=== PATIENT | male | born 1960 | race Caucasian/White ===

== ENCOUNTER 2017-02-08 21:48 | Emergency (ER) | payer OTHER ==
[~2017-02-08 21:48] MED LIST: ADVIL100 MG; ALBU90OI INH; AZIT250 PO; AZIT500 PO; BENZ100A PO; BISA5EC; CIPR500; CIPR500 PO; CYCL10 PO; DICY20 PO; DOCU100 PO; DOXY100 PO; Desyrel50 MG PO; Diflucan100 MG PO; FLUC150A PO; FLUT44OIA INH; HYDACE10B PO; HYDACE5 PO; HYDACE7.5L PO; HYDR1TAB94 PO; IBUP400 PO; IBUP600; IBUP600 PO; IBUP800; IBUP800 PO; LEVO750 PO; LEVSOD100 PO; LORA1 PO; METR500 PO; NAPR500 PO; NYSTRI30T TOP; Norco 5-325 Ta1 EACH PO; OMEP40CA12 PO; ONDA4 PO; ONDA8 PO; OXYACE5T PO; PENVK500 PO; PRAZ1 PO; PRED10 PO; PRED20 PO; PROACE100; PROACE100 PO; PROM25 PO; Phenergan25 M1 PO; Prednisone20 MG PO; QUET100 PO; Synthroid50 MCG; TAMS.4ER PO; TOBDEXOPSU OP; Vistaril50 MG PO
[2018-01-12] MEDS ORDERED: CIME400 PO (09:44)
[2018-01-12] MEDS ORDERED: TAMS.4ER PO (09:45)
[2018-01-12] MEDS ORDERED: DOC250 PO (09:45)
== END 2017-02-08 22:02 | disposition left against medical advice (07) ==
LOC: ER 21:48
DX: Z53.21 Procedure and treatment not carried out due to patient leaving prior to being seen by health care provider (principal)

== ENCOUNTER 2017-12-16 10:05 | Emergency (ER) | payer OTHER ==
[~2017-12-16] VITALS: Ht 182.9 cm; Wt 86.2 kg
[2017-12-16] MEDS ORDERED: LEVSOD100 PO (10:33)
[2017-12-16] MEDS ORDERED: Flovent 220 Ora12 GM (10:33)
[2017-12-16] MEDS ORDERED: OMEPRAZOLE MAGN20 MG PO (10:34)
[2017-12-16] MEDS ORDERED: PRAZ2 PO (10:34)
[2017-12-16] MEDS ORDERED: LORA1 PO (10:34)
[2017-12-16] MEDS ORDERED: BISA5EC (10:35)
[2017-12-16 10:48] LABS: Source, Urine Clean Catch
[2017-12-16 10:53] LABS: BASOPHILS ABSOLUTE AUTO 0.05 K/mm3 (0.00-0.23); BASOPHILS PERCENT AUTO 1 % (0-2); EOSINOPHILS ABSOLUTE AUTO 0.16 K/mm3 (0.00-0.68); EOSINOPHILS PERCENT AUTO 3 % (0-6); Hematocrit 45.8 % (37.0-53.0); Hemoglobin 15.4 g/dL (13.5-17.5); IMMATURE GRAN ABSOLUTE AUTO 0.01 K/mm3 (0.00-0.10); IMMATURE GRAN PERCENT AUTO 0 % (0-1); LYMPHOCYTES ABSOLUTE AUTO 1.49 K/mm3 (0.84-5.20); LYMPHOCYTES PERCENT AUTO 24 % (21-46); MONOCYTES ABSOLUTE AUTO 0.39 K/mm3 (0.16-1.47); MONOCYTES PERCENT AUTO 6 % (4-13); Mean Corpuscular HGB 28.9 pg (26.0-34.0); Mean Corpuscular HGB Conc 33.6 g/dL (31.5-36.5); Mean Corpuscular Volume 86 fL (80-100); NEUTROPHILS ABSOLUTE AUTO 4.02 K/mm3 (1.96-9.15); NEUTROPHILS PERCENT AUTO 66 % (41-73); Platelet Count 213 K/mm3 (150-400); RDW Coefficient Variation 12.5 % (11.7-14.2); Red Blood Cell Count 5.32 M/mm3 (4.30-5.90); White Blood Cell Count 6.12 K/mm3 (4.00-11.30)
[2017-12-16 10:56] LABS: Bilirubin, Urine Neg (Neg); Blood, Urine 5+ (Neg); Glucose Qualitative, Urine Neg (Neg); Ketones, Urine Neg (Neg); Leukocyte Esterase, Urine Neg (Neg); Nitrite, Urine Neg (Neg); Protein, Urine 2+ (Neg); Urobilinogen, Urine NORM (Normal)
[2017-12-16 11:04] LABS: Appearance, Urine Hazy (Clear); Color, Urine Red (P-Yellow)
[2017-12-16 11:05] LABS: Alanine Aminotransfer (ALT/SGP 17 U/L (12-78); Albumin, Blood 4.1 g/dL (3.4-5.0); Albumin/Globulin Ratio 1.2 (0.8-1.8); Alk Phos 104 U/L (50-136); Anion Gap 8 mmol/L (6-16); Aspartate Aminotrans (AST/SGOT 20 U/L (12-37); Bacteria Not Seen /hpf; Bilirubin, Total 0.4 mg/dL (0.1-1.0); Blood Urea Nitrogen 12 mg/dL (8-24); Bun/Creatinine Ratio 12.7 (12.0-20.0); CO2, Blood 27 mmol/L (21-32); Calcium, Blood 8.6 mg/dL (8.5-10.1); Chloride, Blood 105 mmol/L (98-108); Creatinine, Blood 0.94 mg/dL (0.60-1.20); Globulin, Blood 3.3 g/dL (2.2-4.0); Glomerular Filtration Rate >60 (60-); Glucose, Blood 89 mg/dL (70-99); Potassium, Blood 3.8 mmol/L (3.5-5.5); Red Blood Cells, Urine TNTC /hpf (0-2); Sodium, Blood 140 mmol/L (136-145); Squamous Epithelial Cells Not Seen /hpf (Few); Total Protein, Blood 7.4 g/dL (6.4-8.2); White Blood Cells, Urine Not Seen /hpf (0-5)
[2017-12-16] MEDS ORDERED: Norco 5-325 Ta1 EACH PO (11:53)
[2017-12-16] MEDS ORDERED: Zofran Odt4 MG SL (11:53)
[2017-12-16] MEDS ORDERED: Flomax0.4 MG PO (11:53)
== END 2017-12-16 12:28 | disposition home or self-care (01) ==
LOC: ER 10:05
PROVIDERS: Emergency Medicine
DX: N20.0 Calculus of kidney (principal); Z88.5 Allergy status to narcotic agent; Z88.8 Allergy status to other drugs, medicaments and biological substances; Z79.899 Other long term (current) drug therapy; Z79.51 Long term (current) use of inhaled steroids; Z87.891 Personal history of nicotine dependence
CPT/HCPCS: 36415; 74176; 80053; 81001; 83690; 85025; 93005; 93010; 96361; 96374; 96375; 99284-25; J1885; J2405; J7030

== ENCOUNTER 2018-03-24 10:06 | Emergency (ER) | payer OTHER ==
[~2018-03-24] VITALS: Ht 182.9 cm; Wt 86.2 kg
[~2018-03-24 10:06] MED LIST changes: +CIME400 PO; +DOC250 PO; +Flomax0.4 MG PO; +Flovent 220 Ora12 GM; +OMEPRAZOLE MAGN20 MG PO; +PRAZ2 PO; +Zofran Odt4 MG SL
[2018-03-24 10:57] LABS: BASOPHILS ABSOLUTE AUTO 0.03 K/mm3 (0.00-0.23); BASOPHILS PERCENT AUTO 0 % (0-2); EOSINOPHILS ABSOLUTE AUTO 0.12 K/mm3 (0.00-0.68); EOSINOPHILS PERCENT AUTO 1 % (0-6); Hematocrit 53.3 % (37.0-53.0); Hemoglobin 17.2 g/dL (13.5-17.5); IMMATURE GRAN ABSOLUTE AUTO 0.02 K/mm3 (0.00-0.10); IMMATURE GRAN PERCENT AUTO 0 % (0-1); LYMPHOCYTES ABSOLUTE AUTO 0.31 K/mm3 (0.84-5.20); LYMPHOCYTES PERCENT AUTO 3 % (21-46); MONOCYTES PERCENT AUTO 3 % (4-13); Mean Corpuscular HGB 29.5 pg (26.0-34.0); Mean Corpuscular HGB Conc 32.3 g/dL (31.5-36.5); Mean Corpuscular Volume 91 fL (80-100); Mean Platelet Volume 10.2 fL (9.1-12.4); NEUTROPHILS PERCENT AUTO 93 % (41-73); Platelet Count 226 K/mm3 (150-400); RDW Coefficient Variation 13.3 % (11.7-14.2); RDW Standard Deviation 44.5 fL (35.1-46.3); Red Blood Cell Count 5.84 M/mm3 (4.30-5.90); White Blood Cell Count 12.28 K/mm3 (4.00-11.30)
[2018-03-24 11:16] LABS: Alanine Aminotransfer (ALT/SGP 18 U/L (12-78); Albumin, Blood 3.8 g/dL (3.4-5.0); Alk Phos 99 U/L (50-136); Anion Gap 7 mmol/L (6-16); Aspartate Aminotrans (AST/SGOT 26 U/L (12-37); Bilirubin, Total 0.6 mg/dL (0.1-1.0); Blood Urea Nitrogen 19 mg/dL (8-24); Bun/Creatinine Ratio 18.4 (12.0-20.0); CO2, Blood 21 mmol/L (21-32); Calcium, Blood 8.5 mg/dL (8.5-10.1); Chloride, Blood 111 mmol/L (98-108); Creatinine, Blood 1.03 mg/dL (0.60-1.20); Globulin, Blood 3.8 g/dL (2.2-4.0); Glomerular Filtration Rate >60 (60-); Glucose, Blood 97 mg/dL (70-99); Potassium, Blood 4.4 mmol/L (3.5-5.5); Sodium, Blood 139 mmol/L (136-145); Total Protein, Blood 7.6 g/dL (6.4-8.2)
== END 2018-03-24 12:20 | disposition left against medical advice (07) ==
LOC: ER 10:06
PROVIDERS: Emergency Medicine
DX: Z53.21 Procedure and treatment not carried out due to patient leaving prior to being seen by health care provider (principal)
CPT/HCPCS: 36415; 80053; 83690; 85025

== ENCOUNTER → 2018-03-26 | Outpatient (CLI) | payer OTHER ==
[2018-03-26 11:18] LABS: BASOPHILS ABSOLUTE AUTO 0.02 K/mm3 (0.00-0.23); BASOPHILS PERCENT AUTO 0 % (0-2); EOSINOPHILS ABSOLUTE AUTO 0.19 K/mm3 (0.00-0.68); EOSINOPHILS PERCENT AUTO 4 % (0-6); Hematocrit 45.9 % (37.0-53.0); Hemoglobin 15.8 g/dL (13.5-17.5); IMMATURE GRAN ABSOLUTE AUTO 0.01 K/mm3 (0.00-0.10); IMMATURE GRAN PERCENT AUTO 0 % (0-1); LYMPHOCYTES ABSOLUTE AUTO 1.38 K/mm3 (0.84-5.20); LYMPHOCYTES PERCENT AUTO 28 % (21-46); MONOCYTES ABSOLUTE AUTO 0.47 K/mm3 (0.16-1.47); MONOCYTES PERCENT AUTO 10 % (4-13); Mean Corpuscular HGB 29.4 pg (26.0-34.0); Mean Corpuscular HGB Conc 34.4 g/dL (31.5-36.5); NEUTROPHILS ABSOLUTE AUTO 2.89 K/mm3 (1.96-9.15); NEUTROPHILS PERCENT AUTO 58 % (41-73); Platelet Count 189 K/mm3 (150-400); RDW Standard Deviation 40.4 fL (35.1-46.3); Red Blood Cell Count 5.38 M/mm3 (4.30-5.90); White Blood Cell Count 4.96 K/mm3 (4.00-11.30)
[2018-03-26 11:21] LABS: Mean Corpuscular Volume 85 fL (80-100)
[2018-03-26 11:31] LABS: Alanine Aminotransfer (ALT/SGP 15 U/L (12-78); Albumin, Blood 3.6 g/dL (3.4-5.0); Alk Phos 98 U/L (40-126); Anion Gap 12 mmol/L (6-16); Aspartate Aminotrans (AST/SGOT 15 U/L (12-37); Bilirubin, Total 0.4 mg/dL (0.1-1.0); Blood Urea Nitrogen 13 mg/dL (8-24); Bun/Creatinine Ratio 12.7 (12.0-20.0); CO2, Blood 25 mmol/L (21-32); Calcium, Blood 7.7 mg/dL (8.5-10.1); Chloride, Blood 102 mmol/L (98-108); Creatinine, Blood 1.02 mg/dL (0.60-1.20); Globulin, Blood 3.5 g/dL (2.2-4.0); Glomerular Filtration Rate >60 (60-); Glucose, Blood 104 mg/dL (70-99); Potassium, Blood 3.4 mmol/L (3.5-5.5); Sodium, Blood 139 mmol/L (136-145); Total Protein, Blood 7.1 g/dL (6.4-8.2)
== END ==
LOC: LAB SHORT 11:15 → LAB EV 11:15
PROVIDERS: Emergency Medicine
DX: R42 Dizziness and giddiness (principal)
CPT/HCPCS: 80053; 85025

== ENCOUNTER → 2018-07-08 | Outpatient (CLI) | payer OTHER | END | disposition home or self-care (01) | LOC: LAB SHORT 07:00 → LAB 07:00 → LAB FUT 04-30 12:15 → EDSTATUS 04-30 12:15 | DX: N20.0 Calculus of kidney (principal) | CPT/HCPCS: 81050 ==

== ENCOUNTER → 2018-10-21 | Outpatient (CLI) | payer OTHER | END | disposition home or self-care (01) | LOC: LAB EV 06:00 | DX: R19.7 Diarrhea, unspecified (principal) | CPT/HCPCS: 87015; 87045; 87046; 87177; 87205; 87209; 87493; 87899 ==

== ENCOUNTER → 2018-11-14 | Outpatient (CLI) | payer OTHER | END | disposition home or self-care (01) | LOC: LAB EV 10:34 → LAB SHORT 10:34 | DX: R30.9 Painful micturition, unspecified (principal) | CPT/HCPCS: 87086 ==

== ENCOUNTER → 2020-06-29 | Outpatient (CLI) | payer OTHER ==
[2020-06-29 18:44] LABS: BASOPHILS ABSOLUTE AUTO 0.06 K/mm3 (0.00-0.23); BASOPHILS PERCENT AUTO 1 % (0-2); EOSINOPHILS ABSOLUTE AUTO 0.33 K/mm3 (0.00-0.68); EOSINOPHILS PERCENT AUTO 4 % (0-6); Hematocrit 44.9 % (37.0-53.0); Hemoglobin 14.9 g/dL (13.5-17.5); IMMATURE GRAN ABSOLUTE AUTO 0.01 K/mm3 (0.00-0.10); IMMATURE GRAN PERCENT AUTO 0 % (0-1); LYMPHOCYTES ABSOLUTE AUTO 2.18 K/mm3 (0.84-5.20); LYMPHOCYTES PERCENT AUTO 28 % (21-46); MONOCYTES ABSOLUTE AUTO 0.46 K/mm3 (0.16-1.47); MONOCYTES PERCENT AUTO 6 % (4-13); Mean Corpuscular HGB 28.9 pg (26.0-34.0); Mean Corpuscular HGB Conc 33.2 g/dL (31.5-36.5); Mean Corpuscular Volume 87 fL (80-100); Mean Platelet Volume 10.6 fL (9.1-12.4); NEUTROPHILS ABSOLUTE AUTO 4.76 K/mm3 (1.96-9.15); NEUTROPHILS PERCENT AUTO 61 % (41-73); Platelet Count 225 K/mm3 (150-400); RDW Coefficient Variation 12.7 % (11.7-14.2); RDW Standard Deviation 41.1 fL (35.1-46.3); Red Blood Cell Count 5.15 M/mm3 (4.30-5.90)
[2020-06-29 19:04] LABS: Alanine Aminotransfer (ALT/SGP 22 U/L (12-78); Albumin, Blood 4.1 g/dL (3.4-5.0); Albumin/Globulin Ratio 1.2 (0.8-1.8); Alk Phos 114 U/L (50-136); Anion Gap 2 mmol/L (6-16); Aspartate Aminotrans (AST/SGOT 13 U/L (12-37); Bilirubin, Total 0.3 mg/dL (0.1-1.0); Blood Urea Nitrogen 14 mg/dL (8-24); Bun/Creatinine Ratio 13.2 (12.0-20.0); CO2, Blood 30 mmol/L (21-32); Calcium, Blood 8.6 mg/dL (8.5-10.1); Chloride, Blood 108 mmol/L (98-108); Creatinine, Blood 1.06 mg/dL (0.60-1.20); Globulin, Blood 3.4 g/dL (2.2-4.0); Glomerular Filtration Rate >60 (60-); Glucose, Blood 107 mg/dL (70-99); Potassium, Blood 3.9 mmol/L (3.5-5.5); Sodium, Blood 140 mmol/L (136-145); Total Protein, Blood 7.5 g/dL (6.4-8.2)
== END | disposition home or self-care (01) ==
LOC: LAB 17:30 → LAB SHORT 17:30
PROVIDERS: Nurse Practitioner Family
DX: R07.81 Pleurodynia (principal)
CPT/HCPCS: 80053; 85025

== ENCOUNTER → 2020-12-16 | Outpatient (CLI) | payer OTHER ==
[2020-12-16 15:07] LABS: BASOPHILS ABSOLUTE AUTO 0.06 K/mm3 (0.00-0.23); BASOPHILS PERCENT AUTO 1 % (0-2); EOSINOPHILS ABSOLUTE AUTO 0.23 K/mm3 (0.00-0.68); EOSINOPHILS PERCENT AUTO 4 % (0-6); Hematocrit 45.5 % (37.0-53.0); Hemoglobin 15.2 g/dL (13.5-17.5); IMMATURE GRAN ABSOLUTE AUTO 0.02 K/mm3 (0.00-0.10); IMMATURE GRAN PERCENT AUTO 0 % (0-1); LYMPHOCYTES ABSOLUTE AUTO 1.66 K/mm3 (0.84-5.20); LYMPHOCYTES PERCENT AUTO 30 % (21-46); MONOCYTES ABSOLUTE AUTO 0.41 K/mm3 (0.16-1.47); MONOCYTES PERCENT AUTO 7 % (4-13); Mean Corpuscular HGB Conc 33.4 g/dL (31.5-36.5); Mean Corpuscular Volume 87 fL (80-100); Mean Platelet Volume 11.5 fL (9.1-12.4); NEUTROPHILS ABSOLUTE AUTO 3.22 K/mm3 (1.96-9.15); NEUTROPHILS PERCENT AUTO 58 % (41-73); Platelet Count 176 K/mm3 (150-400); RDW Standard Deviation 41.3 fL (35.1-46.3); Red Blood Cell Count 5.24 M/mm3 (4.30-5.90)
[2020-12-16 15:26] LABS: U Amphetamine Screen Not Detected; U Barbituate Screen Not Detected; U Benzodiazapine Screen DETECTED; U Buprenorphine Screen Not Detected; U Cannabinoids Screen DETECTED; U Cocaine Screen Not Detected; U Methadone Screen Not Detected; U Methamphetamine Screen Not Detected; U Opiates Screen Not Detected; U Oxycodone Screen Not Detected; U Phencyclidine Screen Not Detected; U Propoxyphene Screen Not Detected
[2020-12-16 17:38] LABS: Very Low Density Lipoprot Chol 11 mg/dL (6-32)
[2020-12-16 17:47] LABS: Alanine Aminotransfer (ALT/SGP 20 U/L (12-78); Albumin, Blood 4.1 g/dL (3.4-5.0); Albumin/Globulin Ratio 1.2 (0.8-1.8); Alk Phos 93 U/L (50-136); Anion Gap 6 mmol/L (6-16); Aspartate Aminotrans (AST/SGOT 16 U/L (12-37); Bilirubin, Direct <0.1 mg/dL (0.0-0.3); Bilirubin, Indirect Unable to Calculate mg/dL (0.1-0.7); Bilirubin, Total 0.3 mg/dL (0.1-1.0); Blood Urea Nitrogen 15 mg/dL (8-24); Bun/Creatinine Ratio 14.2 (12.0-20.0); CHOL/HDL RATIO 2.9; CO2, Blood 28 mmol/L (21-32); Calcium, Blood 9.4 mg/dL (8.5-10.1); Chloride, Blood 105 mmol/L (98-108); Cholesterol 156 mg/dL (50-200); Creatinine, Blood 1.06 mg/dL (0.60-1.20); Globulin, Blood 3.4 g/dL (2.2-4.0); Glomerular Filtration Rate >60 (60-); Glucose, Blood 88 mg/dL (70-99); HDL Cholesterol 54 mg/dL (>39); LDL/HDL RATIO 1.7; Low Density Lipoprotein Chol 91 mg/dL (0-110); Potassium, Blood 3.7 mmol/L (3.5-5.5); Prostate Specific Antigen 0.483 ng/mL (0.000-4.000); Sodium, Blood 139 mmol/L (136-145); Total Protein, Blood 7.5 g/dL (6.4-8.2); Triglycerides 56 mg/dL (30-160)
== END | disposition home or self-care (01) ==
LOC: LAB SHORT 13:04
PROVIDERS: Nurse Practitioner Family
DX: N40.0 Benign prostatic hyperplasia without lower urinary tract symptoms (principal); I10 Essential (primary) hypertension; E78.5 Hyperlipidemia, unspecified; K76.0 Fatty (change of) liver, not elsewhere classified; Z79.899 Other long term (current) drug therapy
CPT/HCPCS: 80053; 80061; 82248; 84153; 85025

== ENCOUNTER 2023-04-01 16:24 | Emergency (ER) | payer OTHER ==
[~2023-04-01] VITALS: Ht 182.9 cm; Wt 77.1 kg
[~2023-04-01 16:24] MED LIST changes: +ACET500 PO; +ALBU2.5V5 INH; +Calcium Carbon500 MG PO; -Flovent 220 Ora12 GM; +Flovent 220 Ora12 GM INH
[2023-04-01] MEDS ORDERED: PRAZ5 PO (16:40)
[2023-04-01] MEDS ORDERED: OMEP20ER PO (16:41)
[2023-04-01 17:09] LABS: BASOPHILS ABSOLUTE AUTO 0.06 K/mm3 (0.00-0.23); BASOPHILS PERCENT AUTO 1 % (0-2); EOSINOPHILS ABSOLUTE AUTO 0.09 K/mm3 (0.00-0.68); EOSINOPHILS PERCENT AUTO 1 % (0-6); Hematocrit 42.1 % (37.0-53.0); Hemoglobin 14.3 g/dL (13.5-17.5); IMMATURE GRAN ABSOLUTE AUTO 0.03 K/mm3 (0.00-0.10); IMMATURE GRAN PERCENT AUTO 0 % (0-1); LYMPHOCYTES ABSOLUTE AUTO 2.23 K/mm3 (0.84-5.20); LYMPHOCYTES PERCENT AUTO 25 % (21-46); MONOCYTES ABSOLUTE AUTO 0.49 K/mm3 (0.16-1.47); MONOCYTES PERCENT AUTO 6 % (4-13); Mean Corpuscular HGB 30.1 pg (26.0-34.0); Mean Corpuscular Volume 89 fL (80-100); Mean Platelet Volume 9.6 fL (9.1-12.4); NEUTROPHILS ABSOLUTE AUTO 6.04 K/mm3 (1.96-9.15); NEUTROPHILS PERCENT AUTO 68 % (41-73); Platelet Count 162 K/mm3 (150-400); RDW Coefficient Variation 12.9 % (11.7-14.2); RDW Standard Deviation 42.2 fL (35.1-46.3); Red Blood Cell Count 4.75 M/mm3 (4.30-5.90); White Blood Cell Count 8.94 K/mm3 (4.00-11.30)
[2023-04-01 17:34] LABS: Albumin, Blood 3.8 g/dL (3.4-5.0); Albumin/Globulin Ratio 1.3 (0.8-1.8); Bilirubin, Total 0.3 mg/dL (0.1-1.0); Bun/Creatinine Ratio 15.3 (12.0-20.0); Creatinine, Blood 1.11 mg/dL (0.60-1.20); Globulin, Blood 2.9 g/dL (2.2-4.0); Potassium, Blood 3.6 mmol/L (3.5-5.5); Total Protein, Blood 6.7 g/dL (6.4-8.2)
[2023-04-01] MEDS ORDERED: HYDCOR2.5C PR (18:23)
[2023-04-01 18:30] VITALS: BP 116/82
== END 2023-04-01 18:45 | disposition home or self-care (01) ==
LOC: ER 16:24
PROVIDERS: Emergency Medicine
DX: K64.8 Other hemorrhoids (principal); K64.4 Residual hemorrhoidal skin tags; Z87.891 Personal history of nicotine dependence; Z79.51 Long term (current) use of inhaled steroids; Z79.899 Other long term (current) drug therapy; Z88.5 Allergy status to narcotic agent
CPT/HCPCS: 46999; 80053; 85025; 99283-25

== ENCOUNTER 2023-08-23 19:35 | Emergency (ER) | payer OTHER ==
[~2023-08-23] VITALS: Ht 177.8 cm; Wt 83.9 kg
[~2023-08-23 19:35] MED LIST changes: +ADULT GLYCERIN1 EACH PR; -ALBU2.5V5 INH; +ALBU2.5V5 NEB; +EUTHYROX125 MCG PO; +FAMO40 PO; +HYDCOR2.5C PR; +IBUP200 PO; +OMEP20ER PO; +PRAZ5 PO; +PSEU120ER PO; +SENN187; +SYMBICORT 160-4.6 GM INH
[2023-08-23 20:44] LABS: Source, Urine Clean Catch
[2023-08-23 20:48] LABS: BASOPHILS ABSOLUTE AUTO 0.05 K/mm3 (0.00-0.23); BASOPHILS PERCENT AUTO 1 % (0-2); EOSINOPHILS ABSOLUTE AUTO 0.18 K/mm3 (0.00-0.68); EOSINOPHILS PERCENT AUTO 2 % (0-6); Hematocrit 42.2 % (37.0-53.0); Hemoglobin 14.4 g/dL (13.5-17.5); IMMATURE GRAN ABSOLUTE AUTO 0.02 K/mm3 (0.00-0.10); IMMATURE GRAN PERCENT AUTO 0 % (0-1); LYMPHOCYTES ABSOLUTE AUTO 2.44 K/mm3 (0.84-5.20); LYMPHOCYTES PERCENT AUTO 29 % (21-46); MONOCYTES ABSOLUTE AUTO 0.57 K/mm3 (0.16-1.47); MONOCYTES PERCENT AUTO 7 % (4-13); Mean Corpuscular HGB 29.8 pg (26.0-34.0); Mean Corpuscular HGB Conc 34.1 g/dL (31.5-36.5); Mean Corpuscular Volume 87 fL (80-100); Mean Platelet Volume 9.6 fL (9.1-12.4); NEUTROPHILS ABSOLUTE AUTO 5.17 K/mm3 (1.96-9.15); NEUTROPHILS PERCENT AUTO 61 % (41-73); Platelet Count 185 K/mm3 (150-400); RDW Coefficient Variation 12.2 % (11.7-14.2); RDW Standard Deviation 39.3 fL (35.1-46.3); Red Blood Cell Count 4.83 M/mm3 (4.30-5.90); White Blood Cell Count 8.43 K/mm3 (4.00-11.30)
[2023-08-23 20:49] LABS: Appearance, Urine Clear (Clear); Bilirubin, Urine Neg (Neg); Blood, Urine 2+ (Neg); Color, Urine Yellow (P-Yellow); Glucose Qualitative, Urine Neg (Neg); Ketones, Urine Neg (Neg); Leukocyte Esterase, Urine Neg (Neg); Nitrite, Urine Neg (Neg); Protein, Urine 1+ (Neg); Specific Gravity, Urine 1.025 (1.003-1.022); Urobilinogen, Urine NORM (Normal)
[2023-08-23 20:58] LABS: Bacteria Rare /hpf; Squamous Epithelial Cells Rare /hpf (Few); White Blood Cells, Urine 0-2 /hpf (0-5)
[2023-08-23 21:07] LABS: Albumin, Blood 3.9 g/dL (3.4-5.0); Albumin/Globulin Ratio 1.3 (0.8-1.8); Bilirubin, Total 0.3 mg/dL (0.1-1.0); Calcium, Blood 8.8 mg/dL (8.5-10.1); Creatinine, Blood 1.12 mg/dL (0.60-1.20); Potassium, Blood 3.9 mmol/L (3.5-5.5); Total Protein, Blood 6.9 g/dL (6.4-8.2)
[2023-08-23 23:24] VITALS: BP 124/83
== END 2023-08-23 23:45 | disposition home or self-care (01) ==
LOC: ER 19:35
PROVIDERS: Student in an Organized Health Care Education/Training Program
DX: N23 Unspecified renal colic (principal); K21.9 Gastro-esophageal reflux disease without esophagitis; Z88.5 Allergy status to narcotic agent; Z88.8 Allergy status to other drugs, medicaments and biological substances; Z79.899 Other long term (current) drug therapy; Z87.891 Personal history of nicotine dependence
CPT/HCPCS: 74177; 80053; 81001; 83690; 85025; 99284-25; Q9967

== ENCOUNTER → 2023-08-30 | Outpatient (CLI) | payer OTHER | END | disposition home or self-care (01) | LOC: LAB SHORT 18:30 → LAB 18:30 | DX: R10.13 Epigastric pain (principal) | CPT/HCPCS: 87338 ==

== ENCOUNTER 2023-11-07 02:35 | Emergency (ER) | payer OTHER ==
[~2023-11-07] VITALS: Ht 182.9 cm; Wt 77.1 kg
[2023-11-07 02:56] LABS: BASOPHILS ABSOLUTE AUTO 0.04 K/mm3 (0.00-0.23); BASOPHILS PERCENT AUTO 1 % (0-2); EOSINOPHILS ABSOLUTE AUTO 0.25 K/mm3 (0.00-0.68); EOSINOPHILS PERCENT AUTO 5 % (0-6); Hematocrit 41.3 % (37.0-53.0); Hemoglobin 14.2 g/dL (13.5-17.5); IMMATURE GRAN ABSOLUTE AUTO 0.02 K/mm3 (0.00-0.10); IMMATURE GRAN PERCENT AUTO 0 % (0-1); LYMPHOCYTES ABSOLUTE AUTO 2.39 K/mm3 (0.84-5.20); LYMPHOCYTES PERCENT AUTO 47 % (21-46); MONOCYTES ABSOLUTE AUTO 0.32 K/mm3 (0.16-1.47); MONOCYTES PERCENT AUTO 6 % (4-13); Mean Corpuscular HGB 29.7 pg (26.0-34.0); Mean Corpuscular HGB Conc 34.4 g/dL (31.5-36.5); Mean Corpuscular Volume 86 fL (80-100); Mean Platelet Volume 9.6 fL (9.1-12.4); NEUTROPHILS ABSOLUTE AUTO 2.04 K/mm3 (1.96-9.15); NEUTROPHILS PERCENT AUTO 40 % (41-73); Platelet Count 195 K/mm3 (150-400); RDW Coefficient Variation 13.4 % (11.7-14.2); RDW Standard Deviation 42.3 fL (35.1-46.3); Red Blood Cell Count 4.78 M/mm3 (4.30-5.90); White Blood Cell Count 5.06 K/mm3 (4.00-11.30)
[2023-11-07 03:18] LABS: Albumin, Blood 3.7 g/dL (3.4-5.0); Albumin/Globulin Ratio 1.3 (0.8-1.8); Bilirubin, Total 0.3 mg/dL (0.1-1.0); Bun/Creatinine Ratio 11.8 (12.0-20.0); Calcium, Blood 8.9 mg/dL (8.5-10.1); Creatinine, Blood 1.1 mg/dL (0.60-1.20); Globulin, Blood 2.9 g/dL (2.2-4.0); Potassium, Blood 3.6 mmol/L (3.5-5.5); Total Protein, Blood 6.6 g/dL (6.4-8.2)
[2023-11-07] MEDS ORDERED: PRED20 PO (05:01)
[2023-11-07] MEDS ORDERED: AZIT250 PO (05:24)
[2023-11-07 05:30] VITALS: BP 104/67
== END 2023-11-07 05:41 | disposition home or self-care (01) ==
LOC: ER 02:35
PROVIDERS: Emergency Medicine
DX: J98.4 Other disorders of lung (principal); K21.9 Gastro-esophageal reflux disease without esophagitis; Z88.5 Allergy status to narcotic agent; Z91.041 Radiographic dye allergy status; Z88.8 Allergy status to other drugs, medicaments and biological substances; Z79.890 Hormone replacement therapy; Z79.899 Other long term (current) drug therapy; Z87.11 Personal history of peptic ulcer disease; Z87.891 Personal history of nicotine dependence
CPT/HCPCS: 71045; 80053; 84484; 85025; 93005; 93010; 99285-25

== ENCOUNTER 2024-05-23 09:31 | Inpatient (IN) | payer OTHER ==
[~2024-05-23] VITALS: Ht 182.9 cm; Wt 72.6 kg
[~2024-05-23 09:31] MED LIST changes: -SENN187; +SENN187 PO
[2024-05-23] MEDS ORDERED: Morphine Sulfate 4 MG/1 ML Injection IV ONE (09:55)
[2024-05-23 10:29] LABS: BASOPHILS ABSOLUTE AUTO 0.04 K/mm3 (0.00-0.23); BASOPHILS PERCENT AUTO 1 % (0-2); EOSINOPHILS PERCENT AUTO 3 % (0-6); Hematocrit 43.7 % (37.0-53.0); Hemoglobin 13.9 g/dL (13.5-17.5); IMMATURE GRAN ABSOLUTE AUTO 0.02 K/mm3 (0.00-0.10); IMMATURE GRAN PERCENT AUTO 0 % (0-1); LYMPHOCYTES ABSOLUTE AUTO 2.45 K/mm3 (0.84-5.20); LYMPHOCYTES PERCENT AUTO 38 % (21-46); MONOCYTES ABSOLUTE AUTO 0.45 K/mm3 (0.16-1.47); MONOCYTES PERCENT AUTO 7 % (4-13); Mean Corpuscular HGB 28.3 pg (26.0-34.0); Mean Corpuscular HGB Conc 31.8 g/dL (31.5-36.5); Mean Corpuscular Volume 89 fL (80-100); Mean Platelet Volume 9.8 fL (9.1-12.4); NEUTROPHILS ABSOLUTE AUTO 3.33 K/mm3 (1.96-9.15); NEUTROPHILS PERCENT AUTO 51 % (41-73); Platelet Count 193 K/mm3 (150-400); RDW Coefficient Variation 13.2 % (11.7-14.2); Red Blood Cell Count 4.92 M/mm3 (4.30-5.90); White Blood Cell Count 6.49 K/mm3 (4.00-11.30)
[2024-05-23] MEDS ORDERED: DOCU100 PO (10:42)
[2024-05-23] MEDS ORDERED: [UNRECOGNIZED DRUG - CODE] PO (10:42)
[2024-05-23 10:43] LABS: Bun/Creatinine Ratio 13.5 (12.0-20.0); Calcium, Blood 8.8 mg/dL (8.5-10.1); Creatinine, Blood 0.96 mg/dL (0.60-1.20); Potassium, Blood 3.7 mmol/L (3.5-5.5)
[2024-05-23] MEDS ORDERED: VITAMIN D350 MC3 PO (10:43)
[2024-05-23] MEDS ORDERED: Ketorolac Tromethamine 30mg Vial IV ONE (11:10)
[2024-05-23] MEDS ORDERED: Acetaminophen 325 MG TABLET PO PRN (12:50)
[2024-05-23] MEDS ORDERED: Morphine Sulfate 4 MG/1 ML Injection IV PRN (12:50)
[2024-05-23] MEDS ORDERED: Polyethylene Glycol 3350 17 gm PO PRN (12:50)
[2024-05-23 14:24] VITALS: BP 128/82
[2024-05-23] MEDS ORDERED: OxyCODONE HCL 5 MG TAB PO PRN (16:15)
[2024-05-23] MEDS ORDERED: Albuterol 2.5 MG/3 ML VIAL INH PRN (16:35)
[2024-05-23] MEDS ORDERED: LORazepam 1 MG Tab PO PRN (16:35)
[2024-05-23] MEDS ORDERED: Albuterol HFA200 ACT/6.7 GM INH INH PRN (16:45)
--- NOTE | 2024-05-23 17:06 | NUR ---
END OF SHIFT PT RESTING. HIP FRACTURE SCHEDULED TO BE REPAIRED TOMORROW AM. RATES PAIM 05/18. DENIES COMPLAINTS
[2024-05-23] MEDS ORDERED: Calcium Carbonate 500 MG Tab Chew PO PRN (18:20)
[2024-05-23 19:22] VITALS: BP 127/79
[2024-05-23] MEDS ORDERED: Docusate Sodium 100 MG Cap PO SCH (21:00)
[2024-05-23] MEDS ORDERED: QUEtiapine Fumarate 200 MG Tab PO SCH (21:00)
[2024-05-23] MEDS ORDERED: Polyethylene Glycol 3350 17 gm PO SCH (21:00)
[2024-05-23] MEDS ORDERED: Sennosides 8.6 MG Tab PO SCH (21:00)
[2024-05-23] MEDS ORDERED: Omeprazole 20 MG CapCR PO SCH (21:00)
[2024-05-23] MEDS ORDERED: Prazosin HCl 1 MG Cap PO SCH (21:00)
--- NOTE | 2024-05-23 23:52 | NUR ---
REPORT TAKEN FROM GRAZYNA SOSA TO ASSUME CARE OF PT AT THIS TIME. PT HOB ELEVATED, HE IS AWAKE. NO NEEDS AT THIS TIME.
--- NOTE | 2024-05-23 23:59 | NUR ---
REPORT GIVEN TO MONSTER ROBLEDO RN TO ASSUME CARE OF PT.
[2024-05-24] VITALS (23 sets, daily range): BP systolic 90–136; BP diastolic 60–104
[2024-05-24 04:49] LABS: BASOPHILS ABSOLUTE AUTO 0.05 K/mm3 (0.00-0.23); BASOPHILS PERCENT AUTO 1 % (0-2); EOSINOPHILS ABSOLUTE AUTO 0.31 K/mm3 (0.00-0.68); EOSINOPHILS PERCENT AUTO 4 % (0-6); Hematocrit 38.5 % (37.0-53.0); Hemoglobin 12.8 g/dL (13.5-17.5); IMMATURE GRAN ABSOLUTE AUTO 0.03 K/mm3 (0.00-0.10); IMMATURE GRAN PERCENT AUTO 0 % (0-1); LYMPHOCYTES ABSOLUTE AUTO 1.93 K/mm3 (0.84-5.20); LYMPHOCYTES PERCENT AUTO 28 % (21-46); MONOCYTES ABSOLUTE AUTO 0.66 K/mm3 (0.16-1.47); MONOCYTES PERCENT AUTO 9 % (4-13); Mean Corpuscular HGB 28.1 pg (26.0-34.0); Mean Corpuscular HGB Conc 33.2 g/dL (31.5-36.5); Mean Corpuscular Volume 85 fL (80-100); Mean Platelet Volume 9.6 fL (9.1-12.4); NEUTROPHILS ABSOLUTE AUTO 4.01 K/mm3 (1.96-9.15); NEUTROPHILS PERCENT AUTO 58 % (41-73); Platelet Count 173 K/mm3 (150-400); RDW Coefficient Variation 13.2 % (11.7-14.2); RDW Standard Deviation 40.7 fL (35.1-46.3); Red Blood Cell Count 4.55 M/mm3 (4.30-5.90); White Blood Cell Count 6.99 K/mm3 (4.00-11.30)
[2024-05-24] MEDS ORDERED: Tranexamic Acid 100 ML IV SCH (05:00)
[2024-05-24] MEDS ORDERED: Vancomycin HCL 1,000 MG in NS 250 ML IV SCH (05:00)
[2024-05-24] MEDS ORDERED: CeFAZolin Sodium 2,000 MG in NS 100 ML IV SCH (05:00)
--- NOTE | 2024-05-24 05:06 | NUR ---
SHIFT SUMMARY THIS RN ASSUMED CARE OF PT THIS SHIFT JUST SHORTLY BEFORE MIDNIGHT. LEFT HIP FRACTURE. PLAN IS SURGERY TODAY, PT HAS BEEN NPO SINCE MIDNIGHT. PAIN MANAGED WITH MEDS EMAR. PRE OP WASH COMPLETED BY PREVIOUS RN GRAZYNA. PLAN OF CARE UNCHANGED, BED IN LOWEST POSITION, CALL LIGHT WITHIN REACH.
[2024-05-24 05:21] LABS: Bun/Creatinine Ratio 15.4 (12.0-20.0); Calcium, Blood 8.6 mg/dL (8.5-10.1); Creatinine, Blood 0.91 mg/dL (0.60-1.20); Potassium, Blood 3.6 mmol/L (3.5-5.5)
[2024-05-24] MEDS ORDERED: Levothyroxine Sodium 0.125 MG Tab PO SCH (06:00)
[2024-05-24] MEDS ORDERED: Mometasone/Formoterol MDI 200/5 mcg 13 GM INH SCH (08:15)
[2024-05-24] MEDS ORDERED: Cholecalciferol 1000 Unit Tablet (=25MCG) PO SCH (09:00)
[2024-05-24] MEDS ORDERED: Tamsulosin HCl 0.4 MG Cap PO SCH (09:00)
[2024-05-24] MEDS ORDERED: GABA100 PO (09:29)
[2024-05-24] MEDS ORDERED: ENULOSE10 GM/156 PO (09:37)
[2024-05-24] MEDS ORDERED: ALLERCLEAR10 MG PO (09:38)
[2024-05-24] MEDS ORDERED: Methocarbamol500 MG PO (09:42)
[2024-05-24] MEDS ORDERED: KLAYESTA15 GM TOP (09:45)
[2024-05-24] MEDS ORDERED: Triamcinolone A15 G4 TOP (09:50)
[2024-05-24] MEDS ORDERED: QUETIAPINE FUM200 M3 PO (09:53)
[2024-05-24] MEDS ORDERED: SYMBICORT 160-4.6 GM PO (10:06)
[2024-05-24] MEDS ORDERED: ALEVAZOL56.7 G1 TOP (10:06)
[2024-05-24] MEDS ORDERED: Glycerin Adult Supp 1 EA PR STA (10:58)
[2024-05-24] MEDS ORDERED: Dextran/Hypromellose/Glycerin 15 DROP/ML BTL BOTHEYES PRN (11:10)
[2024-05-24] MEDS ORDERED: Midazolam HCl 1MG / ML 2ML Vial ONE (12:20)
[2024-05-24] MEDS ORDERED: FentaNYL Citrate 50 MCG/ML 2 ML Injection ONE (12:20)
--- NOTE | 2024-05-24 13:03 | NUR ---
PT TO OR.
[2024-05-24] MEDS ORDERED: Lactated Ringer's 1,000 ML IV SCH (13:15)
--- NOTE | 2024-05-24 14:00 | NUR ---
History, Chart, Medications and Allergies reviewed before start of procedure. Patient confirms NPO status and agrees with scheduled surgery. Pre-Op teaching done. Pt verbalizes understanding. Pt's glasses placed in labeled bag and placed in PACU. Spouse at bedside. Surgical site prepped with 2% Chlorhexidine cloth wipe. Lungs clear T/O to Auscultation, shallow respirations.
[2024-05-24] MEDS ORDERED: Rocuronium Bromide 10 MG/ML 5ML Injection IV ONE (14:02)
[2024-05-24] MEDS ORDERED: propofoL 20 ML IV ONE (14:02)
[2024-05-24] MEDS ORDERED: Ondansetron HCl 2 MG / ML 2ML Vial ONE (14:02)
[2024-05-24] MEDS ORDERED: Magnesium Hydroxide Conc 10 ML UDC PO PRN (14:10)
[2024-05-24] MEDS ORDERED: Morphine Sulfate 4 MG/1 ML Injection IV PRN (14:10)
[2024-05-24] MEDS ORDERED: HYDROcodone 5-APAP 325 TAB PO PRN (14:10)
[2024-05-24] MEDS ORDERED: HYDROmorphone HCl/Pf 1MG SYR ONE ×3 (14:14→16:10)
[2024-05-24] MEDS ORDERED: Bisacodyl 10 MG Supp PR PRN (14:15)
[2024-05-24] MEDS ORDERED: Ondansetron 4 MG TAB PO PRN (14:15)
[2024-05-24] MEDS ORDERED: Acetaminophen 325 MG TABLET PO PRN (14:15)
[2024-05-24] MEDS ORDERED: Ondansetron HCl 2 MG / ML 2ML Vial IV PRN ×2 (14:15→15:10)
[2024-05-24] MEDS ORDERED: NS KCl 20mEq 1,000 ML IV SCH (14:15)
[2024-05-24] MEDS ORDERED: Naloxone HCl 0.4MG / ML 1ML Vial IV PRN (14:20)
[2024-05-24] MEDS ORDERED: Phenylephrine HCl 100 MCG/ML-NS 10MLSYR (1MG/10ML) ONE (14:30)
[2024-05-24] MEDS ORDERED: Ketorolac Tromethamine 15mg Vial IV PRN (14:40)
[2024-05-24] MEDS ORDERED: HYDROmorphone HCl/Pf 1MG SYR IV PRN ×2 (15:10)
[2024-05-24] MEDS ORDERED: Atropine Sulfate 0.1 MG/ML 10ML SYR IV PRN (15:10)
[2024-05-24] MEDS ORDERED: Albuterol 2.5 MG/3 ML VIAL INH PRN (15:10)
[2024-05-24] MEDS ORDERED: ePHEDrine Sulfate 50 MG/ML 1ML Injection IV PRN (15:10)
[2024-05-24] MEDS ORDERED: Sugammadex Sodium 200 MG/2ML SDV (100 MG/ML) ONE (15:21)
[2024-05-24] MEDS ORDERED: Ipratropium/Albuterol SulF 2.5-0.5MG/3 ML Amp ONE (16:39)
--- NOTE | 2024-05-24 17:20 | NUR ---
pt arrived back to room from pacu. REPORTS PAIN TOLERABLE AT THIS TIME. DENIES NAUSEA. VSS. CALL LIGHT IN REACH. SOFT WHITE DRESSING W/TEGADERM X2 TO L HIP CDI. ICE PACK IN PLACE FOR COMFORT. ICE WATER AND SNACK PROVIDED. SPOUSE AMBULATING TO PATIENT'S ROOM AT THIS TIME.
[2024-05-24] MEDS ORDERED: Docusate Sodium 100 MG Cap PO SCH (21:00)
[2024-05-24] MEDS ORDERED: Simethicone 80 MG Chew PO PRN (21:00)
[2024-05-25 01:37] VITALS: BP 98/66
[2024-05-25 02:41] VITALS: BP 91/57
[2024-05-25 05:47] LABS: BASOPHILS ABSOLUTE AUTO 0.03 K/mm3 (0.00-0.23); BASOPHILS PERCENT AUTO 0 % (0-2); EOSINOPHILS ABSOLUTE AUTO 0.29 K/mm3 (0.00-0.68); EOSINOPHILS PERCENT AUTO 4 % (0-6); Hematocrit 35.8 % (37.0-53.0); Hemoglobin 11.9 g/dL (13.5-17.5); IMMATURE GRAN ABSOLUTE AUTO 0.02 K/mm3 (0.00-0.10); IMMATURE GRAN PERCENT AUTO 0 % (0-1); LYMPHOCYTES ABSOLUTE AUTO 1.73 K/mm3 (0.84-5.20); LYMPHOCYTES PERCENT AUTO 23 % (21-46); MONOCYTES ABSOLUTE AUTO 0.66 K/mm3 (0.16-1.47); MONOCYTES PERCENT AUTO 9 % (4-13); Mean Corpuscular HGB 28.7 pg (26.0-34.0); Mean Corpuscular HGB Conc 33.2 g/dL (31.5-36.5); Mean Corpuscular Volume 86 fL (80-100); Mean Platelet Volume 10.2 fL (9.1-12.4); NEUTROPHILS ABSOLUTE AUTO 4.73 K/mm3 (1.96-9.15); NEUTROPHILS PERCENT AUTO 63 % (41-73); Platelet Count 153 K/mm3 (150-400); RDW Coefficient Variation 13.2 % (11.7-14.2); RDW Standard Deviation 41.7 fL (35.1-46.3); Red Blood Cell Count 4.15 M/mm3 (4.30-5.90); White Blood Cell Count 7.46 K/mm3 (4.00-11.30)
[2024-05-25 06:10] LABS: Bun/Creatinine Ratio 15.7 (12.0-20.0); Creatinine, Blood 0.89 mg/dL (0.60-1.20); Potassium, Blood 3.9 mmol/L (3.5-5.5)
--- NOTE | 2024-05-25 06:58 | NUR ---
NOC SUMMARY- PT PAIN MANAGED WELL. PT IS CONCERNED WITH HAVING A BM. ALL ORDERED BOWEL CARE WAS GIVEN. PT IS VOIDING VIA URINAL. PT DRESSING INTACT AND CLEAN. CALL LIGHT INREACH.
[2024-05-25 07:21] VITALS: BP 102/66
[2024-05-25] MEDS ORDERED: Enoxaparin 40 MG/0.4 ML SYR SC SCH (09:00)
[2024-05-25] MEDS ORDERED: Glycerin Adult Supp 1 EA PR PRN (09:00)
[2024-05-25] MEDS ORDERED: Lactulose 20 GM/30 ML UDC PO SCH (12:00)
[2024-05-25 14:44] VITALS: BP 115/78
--- NOTE | 2024-05-25 16:43 | NUR ---
SHIFT SUMMARY NO ACUTE EVENTS, VSS, PATIENT WORKED WITH THERAPY SITS IN THE CHAIR, HAD BM TODAY, VOIDING, PASSING GAS. DENIES N/V. DRESSING CHANGED THIS AM WITH SURGEON KERMIT IS C/D/I. ICE TO HIP AND PATIENT TOLERATES WELL. [facility]
[2024-05-25 21:38] VITALS: BP 95/59
[2024-05-26 05:22] VITALS: BP 109/71
--- NOTE | 2024-05-26 06:43 | NUR ---
Shift Summary Day shift and Pt had reported numerous loose bowel movements 05/25 so I held all night time bowel meds. No acute events, pt was medicated for pain and anxiety and then slept well t/o most of the night. He is AOx4, 2 person assist [place] [facility] [place]
[2024-05-26 07:07] VITALS: BP 111/68
--- NOTE | 2024-05-26 08:23 | NUR ---
Spiritual Care Consult: ordered by Avinash Barajas At the request of the Pts. family this investor relations analyst came to Pts. bedside. Pt. is awake and pleasant. Faciltated a life review and listened with interest and empathy. Considered matters of shelley and belief, and a measure of rapport is established. Pt. displays evidence of awareness and engagement. Prayed with the pt. Pt. verbalized gratitude for the spiritual care visit and requested this investor relations analyst's contact information. Business Card is provided to the Pt.
[2024-05-26 14:27] VITALS: BP 118/78
--- NOTE | 2024-05-26 15:44 | NUR ---
SUMMARY: PT IS POD2 L HIP PINNING. A/O, VSS. SURGICAL SITE WNL. PT NEEDING 10MG OXY ABOUT EVERY 4 HRS. PAINFUL WITH MOVEMENT. PT AMBULATING TO CHAIR WITH 2 ASSIST AND FWW, FOLLOWS TTWB AND WORKED WITH THERAPY. PT REFUSED BOWEL CARE TODAY, SAYING HE HAD LOOSE STOOLS ALL DAY YESTERDAY. DID TAKE MIRALAX TONIGHT AND HAD X1 SMALL BM. PLAN IS FOR REHAB, SEE CARE MANAGEMENT NOTES. PT USES CALL LIGHT AND MAKES NEEDS KNOWN
--- NOTE | 2024-05-26 17:28 | NUR ---
SUMMARY: PT HAS DONE WELL POST OP. VSS, MINIMAL PAIN. PT IS VOIDING, USING CALL LIGHT. NO ACUTE CONCERNS.
[2024-05-26 19:23] VITALS: BP 120/78
[2024-05-27 04:57] VITALS: BP 111/75
[2024-05-27 05:25] LABS: BASOPHILS ABSOLUTE AUTO 0.02 K/mm3 (0.00-0.23); BASOPHILS PERCENT AUTO 0 % (0-2); EOSINOPHILS ABSOLUTE AUTO 0.26 K/mm3 (0.00-0.68); EOSINOPHILS PERCENT AUTO 3 % (0-6); Hematocrit 35.5 % (37.0-53.0); Hemoglobin 11.9 g/dL (13.5-17.5); IMMATURE GRAN ABSOLUTE AUTO 0.01 K/mm3 (0.00-0.10); IMMATURE GRAN PERCENT AUTO 0 % (0-1); LYMPHOCYTES ABSOLUTE AUTO 1.21 K/mm3 (0.84-5.20); LYMPHOCYTES PERCENT AUTO 14 % (21-46); MONOCYTES ABSOLUTE AUTO 0.52 K/mm3 (0.16-1.47); MONOCYTES PERCENT AUTO 6 % (4-13); Mean Corpuscular HGB 28.8 pg (26.0-34.0); Mean Corpuscular HGB Conc 33.5 g/dL (31.5-36.5); Mean Corpuscular Volume 86 fL (80-100); Mean Platelet Volume 10.6 fL (9.1-12.4); NEUTROPHILS ABSOLUTE AUTO 6.86 K/mm3 (1.96-9.15); NEUTROPHILS PERCENT AUTO 77 % (41-73); Platelet Count 160 K/mm3 (150-400); RDW Coefficient Variation 13.2 % (11.7-14.2); RDW Standard Deviation 41.4 fL (35.1-46.3); Red Blood Cell Count 4.13 M/mm3 (4.30-5.90); White Blood Cell Count 8.88 K/mm3 (4.00-11.30)
[2024-05-27 05:42] LABS: Bun/Creatinine Ratio 17.4 (12.0-20.0); Calcium, Blood 8.2 mg/dL (8.5-10.1); Creatinine, Blood 0.75 mg/dL (0.60-1.20); Potassium, Blood 3.8 mmol/L (3.5-5.5)
--- NOTE | 2024-05-27 06:06 | NUR ---
SHIFT SUMMARY AOX4. VSS. POD 3-L HIP PINNING, AQUACEL DRESSINGS C/D/I. REPORTS 6/10 PAIN TO L HIP, MEDICATED W/10MG OXYCODONE & PT ABLE TO REST WELL T/O NIGHT. CAP REFIL <3 SEC, ABLE TO MOVE LLE. 1P ASSIST W/FWW, GB & TTWB FOR TRANSFERRING. NEIDA PO, VOIDING W/URINAL. CALL LIGHT IN REACH. PENDING DC TO SNF.
[2024-05-27 08:18] VITALS: BP 128/79
[2024-05-27 15:42] VITALS: BP 131/83
[2024-05-27 19:20] VITALS: BP 117/77
[2024-05-28 04:17] LABS: Hematocrit 32.5 % (37.0-53.0); Hemoglobin 11.1 g/dL (13.5-17.5)
[2024-05-28 04:35] LABS: Bun/Creatinine Ratio 13.6 (12.0-20.0); Calcium, Blood 8.4 mg/dL (8.5-10.1); Creatinine, Blood 0.81 mg/dL (0.60-1.20); Potassium, Blood 3.7 mmol/L (3.5-5.5)
--- NOTE | 2024-05-28 06:32 | NUR ---
NOC SUMMARY- PT PAIN MANAGED WELL. DRESSING C/D/I. PT HAS RESTED THROUGHOUT SHIFT. PT VOIDING. NO NEW ISSUES NOTED. CALL LIGHT IN REACH.
[2024-05-28 07:09] VITALS: BP 109/73
[2024-05-28] MEDS ORDERED: Gabapentin 100 MG Cap PO PRN (09:50)
[2024-05-28] MEDS ORDERED: HYDROcodone 5-APAP 325 TAB PO PRN (09:50)
--- NOTE | 2024-05-28 13:51 | NUR ---
PT C/O NEW ONSET RASH LEFT LEG. SMALL PINPOINT AREA OF RASH NOTED TO LEFT POSTERIOR THIGH. NO DRAINAGE NOTED. WILL HAVE HOSPITALIST EVAL ON NEXT ROUNDING
[2024-05-28] MEDS ORDERED: Methocarbamol 500 MG Tab PO SCH (14:00)
[2024-05-28 16:12] VITALS: BP 147/96
[2024-05-28 16:13] VITALS: BP 131/91
[2024-05-28] MEDS ORDERED: OxyCODONE HCL 5 MG TAB PO PRN ×2 (16:30)
[2024-05-28] MEDS ORDERED: Ketorolac Tromethamine 15mg Vial IV PRN (16:35)
[2024-05-28 20:07] VITALS: BP 111/67
[2024-05-28] MEDS ORDERED: LORazepam 1 MG Tab PO SCH (21:00)
[2024-05-28] MEDS ORDERED: DiphenhydrAMINE HCL/Zinc Acet Cream TOP PRN (21:40)
--- NOTE | 2024-05-29 04:21 | NUR ---
SHIFT SUMMARY POD4 LEFT HIP PINNING, X2 SITES WITH AQUACEL ARE C/D/I. PATIENT IS TTWB, ABLE TO TRANSFER WITH 1-2 ASSIST, GB, AND FWW. VOIDING, PASSING STOOLS. MEDICATED FOR PAIN. TOLERATING WELL. VSS, CALL LIGHT IN REACH.
[2024-05-29 04:23] VITALS: BP 113/74
[2024-05-29 07:29] VITALS: BP 122/76
--- NOTE | 2024-05-29 09:35 | NUR ---
DR HINOJOSA IN TO SEE PT. PT UP TO CHAIR. WORKED WITH OT, NOW PT PREPARING TO SEE PT.
--- NOTE | 2024-05-29 11:13 | NUR ---
PT RESTING IN CHAIR; ASKS RN TO REPOSITION CHAIR. CHAIR MOVED AND LOCKS PUT IN PLACE. BLANKET PROVIDED. CALL LIGHT WITHIN REACH.
--- NOTE | 2024-05-29 13:20 | NUR ---
on return from lunch was told pt passed at 13[address]. notified Dr[address] Mcneil and charge nurse. family in room.
[2024-05-29 14:39] VITALS: BP 116/79
--- NOTE | 2024-05-29 15:02 | NUR ---
1445: PT C/O ITCHING TO LEFT HIP, LEFT BUTTOCK, MID BACK. TOPICAL BENADRYL CREAM APPLIED PER ORDER. CALL LIGHT WITHIN REACH.
[2024-05-29 16:31] VITALS: BP 146/89
--- NOTE | 2024-05-29 16:46 | NUR ---
DISCHARGED TO [facility] V[facility]. PT LEFT UNIT IN WC W/POSSESSIONS AND DC PACKET ACCOMPANIED BY TRANSPORT.
[2024-05-29] MEDS ORDERED: Triamcinolone Acet 0.5% Cream 15 gm TOP SCH (21:00)
== END 2024-05-29 16:47 | DRG 481 ==
LOC: ER 09:31 → SURS 12:48 → ER 05-24 08:15 → SURS 05-26 14:04
PROVIDERS: Emergency Medicine; Hospitalist; Internal Medicine; Orthopaedic Surgery; ADMIT Internal Medicine
PROC: 0QS734Z Reposition Left Upper Femur with Internal Fixation Device, Percutaneous Approach (ICD-10-PCS; principal; 2024-05-24 14:00)
DX: S72.142A Displaced intertrochanteric fracture of left femur, initial encounter for closed fracture (principal); F31.81 Bipolar II disorder; W01.0XXA Fall on same level from slipping, tripping and stumbling without subsequent striking against object, initial encounter; Y92.482 Bike path as the place of occurrence of the external cause; F41.9 Anxiety disorder, unspecified; N40.0 Benign prostatic hyperplasia without lower urinary tract symptoms; E03.9 Hypothyroidism, unspecified; K21.9 Gastro-esophageal reflux disease without esophagitis; J44.9 Chronic obstructive pulmonary disease, unspecified; F43.12 Post-traumatic stress disorder, chronic; K59.09 Other constipation; N18.30 Chronic kidney disease, stage 3 unspecified; Z88.8 Allergy status to other drugs, medicaments and biological substances; Z88.5 Allergy status to narcotic agent; Z79.890 Hormone replacement therapy; Z79.51 Long term (current) use of inhaled steroids; Z79.52 Long term (current) use of systemic steroids; Z86.19 Personal history of other infectious and parasitic diseases; Z87.891 Personal history of nicotine dependence
CPT/HCPCS: 36415; 73502; 73552; 80048; 83735; 85014; 85018; 85025; 94640; 94664; 94760; 94762; 96374; 96375; 97110; 97110-CQ; 97116; 97116-CQ; 97162; 97166; 97530; 97535; 99285-25; A9270; C1713; C1769; J0690; J1171; J1650; J1885; J2250; J2270; J2371; J2405; J2704; J3010; J3370; J3480; J7050; J7120